=== PATIENT | male | born 1980 | race Caucasian/White ===

== ENCOUNTER 2017-02-19 18:12 | Emergency (ER) | payer OTHER ==
[~2017-02-19] VITALS: Ht 182.9 cm; Wt 70.5 kg
[2017-02-19 18:14] VITALS: BP 127/75; PULSE 70; RESP 16; O2SAT 98
--- NOTE | 2017-02-19 19:20 | ED.REPORT ---
HPI-Extremity Problem Upper Date of Service Feb 19, 2017 ED Provider: Doc,Ed MD History of Present Illness: father in law is Paxton Garvin, cut left index finger with a band saw about 1.5 hours ago. up to date on tdap. nomally healthy. 03/10, primary care is nadeem gomez. right hand dominant. Nursing Notes Stated Complaint: CUT LEFT INDEX FNGER WITH SAW Chief Complaint: Laceration Nursing Notes Reviewed: Yes Allergies: Coded Allergies: No Known Allergies (Verified , 02/19/17) General Time Seen by MD: 19:19 Chief Complaint Finger injury left 2 Hx Obtained From: Patient Caused by: Accidental Past Medical History Past Medical History at [facility] – [place], [place] for 3 week after fall from barn 3 years ago. Denies: Asthma Past Surgical History denies Smoking History Never Smoker Social History Alcohol Use: Denies alcohol use Drug Use: Denies drug use Occupation lives with , works as a [employer] Ambulatory Status Independent Review of Systems Basic Review of Systems Eyes: Vision NL, No discharge : No dysuria, No frequency Psychiatric: Normal thought content Physical Exam Initial Vital Signs Vital Signs (First) Date Time Temp Pulse Resp B/P Pulse Ox O2 Delivery O2 Flow Rate FiO2 02/19/17 18:14 35.9 70 16 127/75 98 Room Air Initial VS: Reviewed, Vital signs normal General/Constitutional: Well-developed, Well-nourished Head / Eyes: Atraumatic, Normocephalic, PERRL ENT: Mucous membranes moist, Conjunctiva normal, No scleral icterus Neck: Supple, Non-tender, Full range of motion Respiratory: Breath sounds normal, Clear to auscultation, No respiratory distress Cardiovascular: Regular rate & rhythm, Heart sounds normal, Intact distal pulses Abdomen / GI: Soft, Non-tender, No guarding, No rebound, No distention Back: No CVA tenderness Lymphatic: No lymphadenopathy Lower Extremities: Vascular intact, Neuro intact, No swelling, No tenderness Skin: Warm, Dry, No cyanosis Neurologic: Alert, Oriented, Nonfocal Psychiatric: Mood/affect normal, Behavior normal, Normal thought content General/Constitutional: Awake, Alert, No acute distress Respiratory / Chest: Atraumatic, Breath sounds NL, Breath sounds = bilat Cardiovascular: Heart rate NL, Regular rhythm, Heart sounds NL Upper Extremity / MS: Atraumatic, Inspection NL, Full range of motion 1 cm laceration on lateral aspect of index finger. Sensation intact diatally, cap refill less than 2 sec. has full range of motion of finger. Interpretation & Diagnostics X-Ray Interpretation Xray Interpretation: TECHNIQUE: AP hand, 2 views of the left finger(s) acquired. COMPARISON: None. FINDINGS: Bones: No fractures or dislocations. No suspicious bony lesions. Few scattered punctate radiopaque foreign bodies project in the radial soft tissues of the index finger at the level of the middle phalanx . Bone island projecting in the distal ulna Soft tissues: No suspicious soft tissue calcifications. IMPRESSION: No fracture. Left index finger soft tissue swelling, and a few scattered punctate radiopaque foreign bodies as above, at the level of the middle phalanx Procedures Laceration Management Time: 20:00 Procedure Performed by: Allied health pract Consent / Setup / Site Prep: Informed consent provided, Consent from patient , Hand hygiene observed, Stand sterile technique Location of Wound: left index finger Wound Length: 1 cm Local Anesthesia: Lidocaine 1%, 4cc, 27g needle Digital Block: Yes Digit Involved: Index finger left Wound Preparation: Normal saline Debridement: None Irrigation: Copious Foreign Body Explore / Removal: Explored for foreign body Repair Skin: ___ O (5), Nylon # Sutures - Skin: 3 Suture Technique: Simple Post-Procedure / Complications: Antibiotic oint applied, Dressing applied, No complications, Condition improved, Tolerated procedure well, Patient stable Discharge & Departure Impression: Primary Impression: Finger laceration Disposition: Home Patient Instructions: Finger Laceration (ED) Additional Instructions: The x-ray did not show any bony involvement. It did show a small piece of metal which has been washed away. Sutures out in 10 to 14 days. Apply bacitracin to the wound daily. Keep dry for 24 hours, briefly wet after. Can use ibuprofen 800 mg up to 3 times a day for any discomfort. Follow with primary care as needed. Referrals: Bria Catherine MD (PCP) EDSupervising Provider for APC: Bobby Irene MD copies to: Bria Catherine MD, Sue ARNP Feb 19, 2017 19:20
--- NOTE | 2017-02-19 19:56 | DRSVH ---
PROCEDURE: X-RAY FINGERS, TWO VIEWS INDICATIONS: cut with bandsaw TECHNIQUE: AP hand, 2 views of the left finger(s) acquired. COMPARISON: None. FINDINGS: Bones: No fractures or dislocations. No suspicious bony lesions. Few scattered punctate radiopaque foreign bodies project in the radial soft tissues of the index finger at the level of the middle phal anx . Bone island projecting in the distal ulna Soft tissues: No suspicious soft tissue calcifications. IMPRESSION: No fracture. Left index finger soft tissue swelling, and a few scattered punctate radiopaque foreign bodies as abo ve, at the level of the middle phalanx Dictated by: Stewart Mendez M.D. on 02/19/2017 at 19:54 Approved by: Stewart Mendez M.D. on 02/19/2017 at 19:55
== END 2017-02-19 20:40 | disposition home or self-care (01) ==
LOC: SED 18:12
DX: S61.211A Laceration without foreign body of left index finger without damage to nail, initial encounter (principal); W31.2XXA Contact with powered woodworking and forming machines, initial encounter; Y93.9 Activity, unspecified; Y92.9 Unspecified place or not applicable; Y99.8 Other external cause status